=== PATIENT | male | born 1980 | race Caucasian/White ===

== ENCOUNTER → 2021-03-12 10:05 | Outpatient (BNVA) | payer OTHER, SELFPAY | PROVIDERS: Visit Provider Physician Assistant | DX: E66.01 Morbid (severe) obesity due to excess calories (principal); Z68.41 Body mass index [BMI] 40.0-44.9, adult | CPT/HCPCS: 99202 ==

== ENCOUNTER → 2021-04-07 08:03 | Outpatient (BNVA) | payer OTHER, SELFPAY | PROVIDERS: Visit Provider Surgery ==

== ENCOUNTER → 2021-04-13 08:03 | Outpatient (BNVA) | payer OTHER, SELFPAY | PROVIDERS: Visit Provider Dietitian, Registered ==

== ENCOUNTER → 2021-05-03 08:08 | Outpatient (BNVA) | payer OTHER, SELFPAY | PROVIDERS: Visit Provider Surgery ==

== ENCOUNTER → 2022-07-12 14:46 | Outpatient (BNVA) | payer OTHER, SELFPAY | PROVIDERS: PCP Internal Medicine; Visit Provider Physician Assistant Surgical | DX: Z13.89 Encounter for screening for other disorder (principal) ==

== ENCOUNTER → 2022-08-09 14:32 | Outpatient (BNVA) | payer OTHER, SELFPAY | PROVIDERS: PCP Internal Medicine; Visit Provider Physician Assistant Surgical | DX: E66.01 Morbid (severe) obesity due to excess calories (principal); Z68.41 Body mass index [BMI] 40.0-44.9, adult | CPT/HCPCS: 99211; 99212 ==

== ENCOUNTER 2022-08-09 16:41 | Outpatient (REF) | payer OTHER, SELFPAY ==
[2022-08-10 11:55] LABS: H Pylori Breath Test Negative (Negative)
== END 2022-08-09 16:42 | disposition home or self-care (01) ==
LOC: HO.US 16:41
PROVIDERS: Visit Provider Physician Assistant Surgical
DX: Z01.818 Encounter for other preprocedural examination (principal); E66.01 Morbid (severe) obesity due to excess calories; K21.9 Gastro-esophageal reflux disease without esophagitis
CPT/HCPCS: 36415; 83013

== ENCOUNTER → 2022-08-19 15:30 | Outpatient (BNVA) | payer OTHER, SELFPAY | PROVIDERS: PCP Internal Medicine; Visit Provider Counselor Mental Health ==

== ENCOUNTER → 2022-08-23 15:04 | Outpatient (BNVA) | payer OTHER, SELFPAY | PROVIDERS: PCP Internal Medicine; Visit Provider Dietitian, Registered | DX: E66.01 Morbid (severe) obesity due to excess calories (principal); Z71.3 Dietary counseling and surveillance | CPT/HCPCS: 97802 ==

== ENCOUNTER → 2022-08-29 14:36 | Outpatient (BNVA) | payer OTHER, SELFPAY | PROVIDERS: PCP Internal Medicine; Visit Provider Physician Assistant Surgical | DX: E66.01 Morbid (severe) obesity due to excess calories (principal); Z68.41 Body mass index [BMI] 40.0-44.9, adult | CPT/HCPCS: 99212 ==

== ENCOUNTER 2022-08-31 07:45 | Outpatient (REF) | payer OTHER, SELFPAY ==
--- NOTE | ~2022-08-31 | XR_ITS ---
EXAMINATION: XR CHEST CLINICAL INFORMATION: Morbid/severe obesity due to excess calories COMPARISON: None available. TECHNIQUE: 2 views of the chest were obtained. FINDINGS: No significant abnormality is noted involving the heart, lungs, mediastinum, bony thorax or soft tissues. XR/XR chest 2V IMPRESSION: Unremarkable chest examination.
--- NOTE | 2022-08-31 07:51 | ECG_ITS ---
Test Reason : morbid obesity Blood Pressure : / mmHG Vent. Rate : 065 BPM Atrial Rate : 065 BPM P-R Int : 154 ms QRS Dur : 098 ms QT Int : 372 ms P-R-T Axes : -19 -02 008 degrees QTc Int : 386 ms Normal sinus rhythm Normal ECG No previous ECGs available Referred By: Jose Manuel Electronically Signed By:AVA CALDERON MD
[2022-08-31 08:02] LABS: MANUAL DIFF FLAG NO
[2022-08-31 08:17] LABS: Basophils Percent Auto 0.8 % (0-2); Eosinophils Absolute Auto 0.2 X10*3/uL (0.0-0.4); Eosinophils Percent Auto 3.5 % (0-4); Hematocrit 44.8 % (42.0-52.0); Hemoglobin 14.9 g/dl (14.0-18.0); Imm Gran Abs Auto 0.01 X10*3/uL (0.00-0.03); Imm Gran Pct Auto 0.2 % (0.0-0.4); Lymphocytes Absolute Auto 1.6 X10*3/uL (1.2-4.9); Lymphocytes Percent Auto 29.8 % (20-40); Mean Corpuscular HGB Conc 33.3 g/dl (31.0-36.0); Mean Corpuscular Hemoglobin 28.7 pg (27.0-33.0); Mean Corpuscular Volume 86.2 fL (80.0-98.0); Mean Platelet Volume 10.9 fL (9.4-12.4); Monocytes Absolute Auto 0.5 X10*3/uL (0.1-1.2); Neutrophils Percent Auto 56.7 % (45-73); Platelet Count 194 X10*3/uL (160-400); Red Cell Distribution Width 12.7 % (11.0-16.0); White Blood Count 5.2 X10*3/uL (4.8-10.8)
[2022-08-31 08:21] LABS: Estimated Average Glucose 103 mg/dL; Hemoglobin A1c % 5.2 %
[2022-08-31 08:45] LABS: Alanine Aminotransferase 27 U/L (0-40); Albumin Level 4.3 g/dL (3.5-5.0); Alkaline Phosphatase 71 U/L (39-117); Anion Gap 9 (12-20); Aspartate Amino Transferase 21 U/L (5-37); Bilirubin Total 0.9 mg/dL (0.0-1.0); Blood Urea Nitrogen 15 mg/dL (9-16); Calcium 8.9 mg/dL (8.4-10.2); Carbon Dioxide 27 mmol/L (22-29); Chloride 108 mmol/L (96-108); Cholesterol 139 mg/dL; Estimated Glomerular Filt Rate > 60; Glucose Random 88 mg/dL (60-115); HDL Cholesterol 40 mg/dL; Iron 71 mcg/dL (45-160); LDL Cholesterol Calculated 90 mg/dl; Percent Iron Saturation 30 % (15-50); Potassium 4.4 mmol/L (3.3-5.1); Sodium 140 mmol/L (135-145); Total Iron Binding Capacity 239 mcg/dL (228-428); Total Protein 6.7 g/dL (6.5-8.0); Triglycerides 45 mg/dL; Unsaturated Iron Binding 168 ug/dL
[2022-08-31 09:14] LABS: Ferritin 105 ng/mL (20-250); Folate 5.6 ng/mL (> or = 4.0); Insulin 7 uU/mL (2-29); TSH reflex Free T4 0.96 uIU/mL (0.32-4.0); Vitamin B12 570 pg/mL (200-900)
[2022-09-02 14:58] LABS: Calcium (PTHI) 9.2 mg/dL (8.6-10.3); PTHI 55 pg/mL (16-77)
[2022-09-06 06:18] LABS: Vitamin A 44 mcg/dL (38-98)
[2022-09-08 05:48] LABS: Vitamin B1 8 nmol/L (8-30)
== END 2022-08-31 07:46 | disposition home or self-care (01) ==
LOC: HO.XRAY 07:45
PROVIDERS: Visit Provider Physician Assistant Surgical
DX: E66.01 Morbid (severe) obesity due to excess calories (principal)
CPT/HCPCS: 36415; 71046; 80053; 80061; 82306; 82607; 82728; 82746; 83036; 83525; 83540; 83970; 84425; 84443; 84590; 84630; 85025; 86140; 93005

== ENCOUNTER 2022-09-21 07:47 | Outpatient (REF) | payer MEDICAID, SELFPAY ==
--- NOTE | ~2022-09-21 | FL_ITS ---
EXAMINATION: XR FLUOROSCOPY UPPER GI WITH AIR CLINICAL INFORMATION: Morbid obesity COMPARISON: None available. TECHNIQUE: Air-contrast upper GI examination. FINDINGS: There is normal apposition of the vocal cords while saying E. There is normal elevation of the soft palate while saying candy. Patient swallowed combination of thin and thick barium and half-inch diameter barium tablet without difficulty. No nasopharyngeal reflux or tracheal aspiration identified. The esophagus appears unremarkable without evidence of persistent stricture or mucosal abnormality. There is normal esophageal motility. No gastroesophageal reflux identified. Stomach has normal distensibility without abnormal mass or ulceration. There was no delay in gastric emptying. The duodenal bulb and sweep appeared unremarkable. FLUOROSCOPY TIME: 2.2 minutes DOSE AREA PRODUCT: 31.107 Gy-cm2 (charles-centimeter squared) FL/FL upper GI w air IMPRESSION: Minimal rapidly clearing gastroesophageal reflux. Otherwise unremarkable air-contrast upper GI examination.
--- NOTE | ~2022-09-21 | US_ITS ---
EXAMINATION: US COMPLETE ABDOMEN WITH LIVER ELASTOGRAPHY CLINICAL INFORMATION: Obesity. COMPARISON: None available. TECHNIQUE: Real-time imaging of the abdominal viscera. Noninvasive ultrasound liver fibrosis assessment is performed using Clare ElastPQ point quantification shear wave elastography (2D-SWE) with a C5-2 MHz transducer. Multiple elastography samples are obtained. FINDINGS: PANCREAS: Not visualized due to bowel gas. ABDOMINAL AORTA: The proximal, middle, and distal aortic segments are normal in caliber. INFERIOR VENA CAVA: Visualized portions are normal. LIVER: Liver echotexture is increased. The liver is normal in size and contour. No focal lesion or intrahepatic biliary duct dilatation. The right lobe measures 15 cm in length. The left lobe measures 9 cm in length. Portal flow is normal/hepatopedal Shear wave liver elastography median stiffness is 1.6 m/s (reference: normal median stiffness is 1.3 m/s or less). IQR/median stiffness to assess sampling precision is 0.15 (reference: good quality data set is IQR/median stiffness of 0.15 or less). GALLBLADDER: Normal. The gallbladder is physiologically distended without evidence of stones, sludge, polyps, wall thickening or pericholecystic fluid. COMMON BILE DUCT: Normal in caliber measuring 0.3 cm in diameter. RIGHT KIDNEY: Normal. No hydronephrosis. No renal calculi or focal parenchymal lesions. The kidney measures 12.7 cm in maximum dimension. LEFT KIDNEY: Normal. No hydronephrosis. No renal calculi or focal parenchymal lesions. The kidney measures 12.2 cm in maximum dimension. SPLEEN: Upper normal in size. The spleen measures 13.6 cm in maximum dimension. FREE FLUID: None. US/US abdomen comp w elastography IMPRESSION: 1. Impression: Echogenic liver suggestive of fatty infiltration. Upper normal-size spleen. Nonvisualization of the pancreas. 2. Liver elastography: Adequate liver sampling. In the absence of other known clinical signs, rules out compensated advanced chronic liver disease. REFERENCE: Society of Radiologists in Ultrasound Liver Stiffness Thresholds (2020): LIVER STIFFNESS THRESHOLDS: *Liver Stiffness equal or less than 1.3 m/s: High probability of being normal. *Liver Stiffness less than 1.7 m/s: In the absence of other known clinical signs, rules out compensated advanced chronic liver disease. *Liver Stiffness 1.7-2.1 m/s: Suggestive of compensated advanced chronic liver disease but need further test for confirmation. *Liver Stiffness over 2.1 m/s: Rules in compensated advanced chronic liver disease. *Liver Stiffness over 2.4 m/s: Suggestive of clinically significant portal hypertension. QUALITY OF DATA SET: *IQR/Median value equal or less than 0.15 implies a quality data set. *IQR/Median value over 0.15 implies a poor quality data set. SIGNIFICANT CHANGE FROM PRIOR EXAM: Significant change if liver stiffness measurement is 10% or greater from prior exam. OTHER CONSIDERATIONS: The stage of liver fibrosis may be overestimated in the setting of acute hepatitis, liver inflammation, elevated liver function tests, hepatic vascular congestion, obstructive cholestasis, non-fasting state, and infiltrative diseases such as amyloidosis and lymphoma. In some patients with NAFLD, the liver stiffness thresholds for compensated advanced chronic liver disease may be lower. In causes other than viral hepatitis and NAFLD, liver stiffness thresholds are not well established.
== END 2022-09-21 07:48 | disposition home or self-care (01) ==
LOC: HO.XRAY 07:47
PROVIDERS: PCP Internal Medicine; Visit Provider Physician Assistant Surgical
DX: E66.01 Morbid (severe) obesity due to excess calories (principal)
CPT/HCPCS: 74246; 76705; 76981

== ENCOUNTER → 2022-09-22 15:22 | Outpatient (BNVA) | payer MEDICAID, SELFPAY | PROVIDERS: PCP Internal Medicine; Visit Provider Dietitian, Registered | DX: E66.01 Morbid (severe) obesity due to excess calories (principal); Z68.41 Body mass index [BMI] 40.0-44.9, adult | CPT/HCPCS: 97803 ==

== ENCOUNTER → 2022-10-10 13:21 | Outpatient (BNVA) | payer OTHER, SELFPAY | PROVIDERS: PCP Internal Medicine; Visit Provider Physician Assistant Surgical | DX: E66.01 Morbid (severe) obesity due to excess calories (principal); Z68.41 Body mass index [BMI] 40.0-44.9, adult | CPT/HCPCS: 99212 ==

== ENCOUNTER 2023-01-17 13:56 | Outpatient (AMB) | payer SELFPAY ==
--- NOTE | 2023-01-17 14:06 | MHC.OFFVISWM ---
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 They were last seen in the office on 10/10/22, recorded weight at that time was 263 pounds, with a BMI of 41.2. Today's weight is 255 pounds and BMI is 40. There has been a weight loss of 26.4 pounds since initiating the surgical weight loss program on 08/09/22 with a total body weight loss of 9.3 %. Pre op work up completed as follows: SWL classes:? 12/27 BH appts: cleared 08/26/22 ? ? RD appts: cleared 09/22/22 Labs: 08/31/22-low D H. pylori: 10/09/22-neg CXR: 08/31/22-nad EK08/31/22-normal ABD U/S: 09/21/22-fatty liver UGI: 09/21/22-mild GERD The patient reports he had to reschedule several appointment due to work. Reports following the meal plan. But using 2 scoops per shake, doing bar dinner, not doing shake at night , haing coffee States he will follow the plan exactly but doesn't like the 2 scoops shake in the morning.? Current meal plan includes: 3 Orgain shakes ([employer], [employer], [employer], [email or web address]) First shake (1 scoops in 8 oz low fat unsweetened almond milk) at 6am-8am Second shake (1 scoop in 8 oz unsweetened almond milk) at 9am-11am 1 protein bar (Zone Perfect bars at [employer], [facility], or [employer]) at 1pm-3pm, and 1 luxembourger yogurt Dinner at 430 pm (10 forks of protein and 10 forks of salad/vegetables). Another shake with 1 scoop in 8 oz unsweetened almond milk at 6pm-8pm. Drinking 80 oz of water Current exercise plan includes: he has joined [employer] but not going. Does sports w his kids, basketball/volleyball. PFSH Surgical History Hx of umbilical hernia repair Family History Mother Diabetes Hernia Sleep apnea Father Diabetes Sleep apnea Hypertension Brother No problems noted. Brother No problems noted. Son No problems noted. Daughter No problems noted. Social History Alcohol intake: former Patient Tobacco Use Status: Former Tobacco user Review of Systems Const All systems reviewed & are unremarkable except as noted in HPI and below Physical Exam Const General: healthy appearing and no acute distress Resp Effort & Inspection: normal respiratory effort Auscultation: clear to auscultation bilaterally Cardio Rate: regular rate Rhythm: regular rhythm GI Auscultation: normal bowel sounds Extrem General: Yes normal to inspection Assessment & Plan Assessment & Plan (1) Morbid obesity: Code(s): E66.01 - Morbid (severe) obesity due to excess calories Plan: change meal plan: 3 Orgain shakes ([employer], [employer], [employer], [email or web address]) First shake (1 scoops in 8 oz low fat unsweetened almond milk) at 6am-8am Second shake (2 scoop in 8 oz unsweetened almond milk) at 9am-11am 1 luxembourger yogurt at 1pm-3pm, Dinner at 430 pm (10 forks of protein and 10 forks of salad/vegetables). Another shake with 1 scoop in 8 oz unsweetened almond milk at 6pm-8pm. Encouraged to exercise at [employer] as directed with goal of 300 helen daily Will refer to Dr Low for continued pre-op care text weight weekly text w any questions completed all pre-op testing Coding Level of Care Code Est Pt Level 3 (14595) Diagnoses Morbid obesity E66.01
[2023-01-17 14:14] VITALS: BP 141/91; PULSE 87; TEMP 36.1; O2SAT 96; BMI 39.9
== END 2023-01-17 14:39 | disposition home or self-care (01) ==
PROVIDERS: PCP Internal Medicine; Visit Provider Physician Assistant Surgical
DX: E66.01 Morbid (severe) obesity due to excess calories (principal)
CPT/HCPCS: 99213

== ENCOUNTER → 2023-01-17 13:56 | Outpatient (BNVA) | payer OTHER, SELFPAY | PROVIDERS: PCP Internal Medicine; Visit Provider Physician Assistant Surgical | DX: E66.01 Morbid (severe) obesity due to excess calories (principal); Z68.39 Body mass index [BMI] 39.0-39.9, adult | CPT/HCPCS: 99212 ==

== ENCOUNTER 2023-02-02 15:04 | Outpatient (AMB) | payer OTHER, SELFPAY ==
--- NOTE | 2023-02-02 15:06 | A.OFFVIS_ITS ---
Intake VS Expanded 02/02/23 15:16 Height 5 ft 7 in Weight 250 lb 9.6 oz BMI 39.2 BP 138/91 H Blood Pressure Location Rt brachial Blood Pressure Position Sitting Pulse 95 Pulse Source Pulse Oximeter Temp 97.6 F Temperature Source Tympanic Pulse Oximetry 97 Oxygen Delivery Method Room Air Body Fat 90.8 Body Fat Percentage 36.3 Free Fat Mass 159.6 Muscle Mass 151.6 Visceral Mass 20.0 Water Mass 114.8 BMR 2,199 Intake Visit Reasons: (OV) F/U SWL Prism Inspector Required: Yes Prism Inspector Name: Kell Information Interpreted: non-clinical & clinical Paint Roller Covermaker: Paint Roller Covermaker Present Allergies No Known Allergies Allergy (Verified 10/10/22 13:30) Medication List - Last Reconciled 02/02/23 by Jairo Low MD cholecalciferol (vitamin D3) 125 mcg PO DAILY HPI HPI Comments History of Present Illness Details The patient is seen to discuss surgical weight loss because of a lifelong struggle with obesity. He has been working on healthy lifestyle changes and reports his current meal plan is working well. He is congratulated on his interval weight loss of 24 lb since entering the surgical weight loss program. He presented with class 3 obesity weight of 272.2/BMI 42.6 on 08/09/22 & today, 02/02/23 has a weight of 229.2/BMI 38.1. BHARATHI:0 ESS:1 GERD4: QOL:42 Pre op work up completed as follows: SWL classes:? 12/27 BH appts: cleared 08/26/22 ? ? RD appts: cleared 09/22/22 Labs: 08/31/22-low D H. pylori: 10/09/22-neg CXR: 08/31/22-nad EK08/31/22-normal ABD U/S: 09/21/22-fatty liver UGI: 09/21/22-mild GERD He reports a history of his umbilical hernia repair Current meal plan includes: 3 Orgain shakes ([employer], [employer], [facility], org [email or web address]) First shake (1 scoops in 8 oz low fat unsweetened almond milk) at 6am-8am Second shake (1 scoop in 8 oz unsweetened almond milk) at 9am-11am 1 protein bar (Zone Perfect bars at [employer], [facility], or [employer]) at 1pm-3pm, and 1 malay yogurt Dinner at 430 pm (10 forks of protein and 10 forks of salad/vegetables). Another shake with 1 scoop in 8 oz unsweetened almond milk at 6pm-8pm. Drinking 80 oz of water Current exercise plan includes: he has joined [employer] but not going. Does sports w his kids, basketball/volleyball. PFSH Surgical History Hx of umbilical hernia repair Family History Mother Diabetes Hernia Sleep apnea Father Diabetes Sleep apnea Hypertension Brother No problems noted. Brother No problems noted. Son No problems noted. Daughter No problems noted. Social History Alcohol intake: former Patient Tobacco Use Status: Former Tobacco user Review of Systems Const All systems reviewed & are unremarkable except as noted in HPI and below Reports as per HPI Physical Exam On exam he is nontoxic and in good spirits Sclera anicteric He is in no acute respiratory distress Abdomen is obese, nontender Results Reviewed Results Reviewed: Labs 08/09/2022 Hemoglobin 14.9 with normal indices, normal iron studies, white blood cell count 5.2 with normal differential, platelet count 194 K Hemoglobin A1c 5.2 BUN 15/creatinine 0.87, normal electrolytes, normal lipids, normal LFTs Diagnostic imaging CXR: NAD UGI No HH, mild GERD Abd U/S NAFLD & compensated liver fibrosis, borderline spleen enlargement Assessment & Plan Assessment & Plan (1) Class 3 obesity: Code(s): E66.01 - Morbid (severe) obesity due to excess calories (2) NAFLD (nonalcoholic fatty liver disease): Code(s): K76.0 - Fatty (change of) liver, not elsewhere classified Plan Using a teaching business information consultant we reviewed normal anatomy, digestive physiology and options at this point including ongoing medical weight loss, or surgical weight loss options including laparoscopic sleeve gastrectomy and laparoscopic gastric bypass. The patient would like to proceed with laparoscopic sleeve gastrectomy. The inherent risks of surgery including, but not limited to: Weight regain if maladaptive eating and sedentary behavior resume, the importance of ongoing healthy dietary choices including high-protein/low-carbohydrate/low-fat and increased activity/exercise to augment weight loss, risk of GERD, risk of DVT that could cause fatal PE, risks of bleeding that could require reoperation or blood transfusion were discussed. Patient seemed understand his options and noted that he has a upcoming trip to [place] and would like to discuss proceeding with surgery when he returns. Patient will continue his current meal plan and work on increasing his activity/exercise. The importance of hydration for his upcoming trip to [place] was discussed and apparently understood. Will submit to the insurance company since he is reached goal weight loss and we will see him back to sign consents and review typical perioperative course. The laparoscopic procedure, possible need for hiatal hernia repair, intraoperative endoscopy were discussed. The importance of hydration and early ambulation to prevent DVT was discussed. The bowel prep and postoperative meal plan was discussed. The importance of avoiding airplan/seat travel travel for 2 months after surgery was also reviewed and apparently understood Coding Level of Care Code Est Pt Level 4 (44418) Diagnoses Class 3 obesity E66.01 NAFLD (nonalcoholic fatty liver disease) K76.0
[2023-02-02 15:16] VITALS: BP 138/91; PULSE 95; TEMP 36.4; O2SAT 97; BMI 39.2
== END 2023-02-02 16:13 | disposition home or self-care (01) ==
PROVIDERS: PCP Internal Medicine; Visit Provider Surgery
DX: E66.01 Morbid (severe) obesity due to excess calories (principal); K76.0 Fatty (change of) liver, not elsewhere classified
CPT/HCPCS: 99214

== ENCOUNTER → 2023-02-02 15:04 | Outpatient (BNVA) | payer SELFPAY | PROVIDERS: PCP Internal Medicine; Visit Provider Surgery | DX: E66.01 Morbid (severe) obesity due to excess calories (principal); K76.0 Fatty (change of) liver, not elsewhere classified; Z68.39 Body mass index [BMI] 39.0-39.9, adult | CPT/HCPCS: 99212 ==

== ENCOUNTER 2023-03-08 15:33 | Outpatient (AMB) | payer OTHER, SELFPAY ==
--- NOTE | 2023-03-08 15:02 | A.OFFVIS_ITS ---
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 weight loss: 35 pounds since starting the program in July. awakens at: 5 am, bed at : 10 pm [facility] Surgical History Hx of umbilical hernia repair Family History Mother Diabetes Hernia Sleep apnea Father Diabetes Sleep apnea Hypertension Brother No problems noted. Brother No problems noted. Son No problems noted. Daughter No problems noted. Social History Alcohol intake: former Patient Tobacco Use Status: Former Tobacco user Review of Systems Const All systems reviewed & are unremarkable except as noted in HPI and below Assessment & Plan Assessment & Plan (1) Obesity (BMI 30-39.9): Code(s): E66.9 - Obesity, unspecified Plan: 1. Start this meal plan on 03/08/23, approximately 2 weeks prior to surgery. Using Orgain Protein powder, 1 and 1/2 scoops per shake dissolved in 8 oz unsweetened almond milk first shake 6am-8am second shake 9 am-11 am third shake 12pm-2pm fourth shake 3pm-5 pm fifth shake 7 pm-9 pm 2. Drink at least 64 oz fluids daily. NO SODA OR JUICE. NO CAFFEINE 3. Continue to take your vitamins as you have been doing 4. No ALCOHOLIC beverages 5. No Advil, Motirn, Aleve or NSAIDS 6. Midnight on the night before surgery, nothing by mouth to eat or drink except as specifically advised by your surgeon for medications in the morning with a small sip of water. 7. Text me if you have any questions or concerns. [phone] Telehealth Telehealth Location of provider rendering services: practice address Location of patient: other Patient Identification confirmed using: Name, : Yes Telehealth method: video Patient verbally consented to treatment: Yes Patient verbally consented to billing insurance company: Yes Patient informed of any privacy concerns related to visit: Yes Minutes spent on Phone/Video with Pt.: 15 Coding Level of Care Code Tele Est Pt Level 3 (39753) Diagnoses Obesity (BMI 30-39.9) E66.9 Time Spent (min) 20
[2023-03-08 15:26] VITALS: BMI 38.5
== END 2023-03-08 16:03 | disposition home or self-care (01) ==
LOC: HO.HBS 15:33
PROVIDERS: PCP Internal Medicine; Visit Provider Physician Assistant Surgical
DX: E66.9 Obesity, unspecified (principal); Z68.38 Body mass index [BMI] 38.0-38.9, adult
CPT/HCPCS: 99213

== ENCOUNTER → 2023-03-08 15:33 | Outpatient (BNVA) | payer OTHER, SELFPAY | PROVIDERS: PCP Internal Medicine; Visit Provider Physician Assistant Surgical ==

== ENCOUNTER 2023-03-15 14:59 | Outpatient (AMB) | payer OTHER, SELFPAY ==
--- NOTE | 2023-03-15 15:06 | MHC.OFFVISWM ---
Intake VS Expanded 03/15/23 15:13 BP 133/86 Blood Pressure Location Rt brachial Blood Pressure Position Sitting Pulse 93 Pulse Source Pulse Oximeter Temp 97.1 F Temperature Source Temporal Artery Scan Pulse Oximetry 97 Oxygen Delivery Method Room Air Height 5 ft 7 in Weight 246 lb 3.2 oz BMI 38.6 Body Fat % 35.6 Body Fat Mass 87.6 Fat Free Mass 158.6 Visceral Fat Rating 19.0 Body Water % 46.6 Body Water Mass 114.6 Muscle Mass/Score 150.8 Basal Metabolic Rate/Score 2,179 Intake Visit Reasons: (OV) Pre Op LSG 03/22/23 [employer] Fire Control Man Required: Yes [employer] Fire Control Man Name: Kell Information Interpreted: clinical only Plywood Layup 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 Mix each packet with 8 oz's of water before surgery. sucralfate 10 mL PO BID 30 days HPI HPI Comments History of Present Illness Details The patient is seen to discuss surgical weight loss because of a lifelong struggle with obesity. He has been working on healthy lifestyle changes and reports his current meal plan is working well. He is congratulated on his interval weight loss of 24 lb since entering the surgical weight loss program. He presented with class 3 obesity weight of 272.2/BMI 42.6 on 08/09/22 & today, 03/15/23 has a weight of 246.2/BMI 38.6. BHARATHI:0 ESS:1 GERD4: QOL:42 Pre op work up completed as follows: SWL classes:? 12/27 BH appts: cleared 08/26/22 ? ? RD appts: cleared 09/22/22 Labs: 08/31/22-low D H. pylori: 10/09/22-neg CXR: 08/31/22-nad EK08/31/22-normal ABD U/S: 09/21/22-fatty liver UGI: 09/21/22-mild GERD He reports a history of his umbilical hernia repair Current meal plan includes: 3 Orgain shakes ([employer], [employer], [employer], [email or web address]) First shake (1 scoops in 8 oz low fat unsweetened almond milk) at 6am-8am Second shake (1 scoop in 8 oz unsweetened almond milk) at 9am-11am 1 protein bar ([employer] Perfect bars at [employer], [employer], or [employer]) at 1pm-3pm, and 1 slovenian yogurt Dinner at 430 pm (10 forks of protein and 10 forks of salad/vegetables). Another shake with 1 scoop in 8 oz unsweetened almond milk at 6pm-8pm. Drinking 80 oz of water The patient notes some difficulty with or gain shakes and was given 2 samples of celebrate 4 in 1. He notes that he will be trying the Orgain shakes with almond milk later this week for the liver shrinking diet and will call us if a different protein shake is required for the liver shrinking diet Current exercise plan includes: he has joined [employer] but not going. Does sports w his kids, basketball/volleyball. PFSH Medical History Former smoker, stopped smoking in distant past Surgical History Hx of umbilical hernia repair Family History Mother Diabetes Hernia Sleep apnea Father Diabetes Sleep apnea Hypertension Brother No problems noted. Brother No problems noted. Son No problems noted. Daughter No problems noted. Social History Are you a primary healthcare risk control consultant to a significant other at home: Yes (2 children, mom will be there post-op to help) Do you presently have visiting nurse or other home services: No Alcohol intake: former Patient Tobacco Use Status: Former Tobacco user Quit Date: 2002 Tobacco use type: Cigarette Physical Exam Vital Signs: Last Vital Signs Temp 97.1 F 03/15/23 15:13 Pulse 93 03/15/23 15:13 BP 133/86 03/15/23 15:13 Pulse Ox 97 03/15/23 15:13 Oxygen Delivery Method Room Air 03/15/23 15:13 BMI result Body Mass Index 38.6 On exam he is nontoxic and in good spirits Sclera anicteric He is in no acute respiratory distress Abdomen is obese, nontender Results Reviewed Results Reviewed: Labs 08/09/2022 Hemoglobin 14.9 with normal indices, normal iron studies, white blood cell count 5.2 with normal differential, platelet count 194 K Hemoglobin A1c 5.2 BUN 15/creatinine 0.87, normal electrolytes, normal lipids, normal LFTs Diagnostic imaging CXR: NAD UGI No HH, mild GERD Abd U/S NAFLD & compensated liver fibrosis, borderline spleen enlargement Assessment & Plan Assessment & Plan (1) Obesity (BMI 30-39.9): Code(s): E66.9 - Obesity, unspecified (2) NAFLD (nonalcoholic fatty liver disease): Code(s): K76.0 - Fatty (change of) liver, not elsewhere classified (3) Class 3 obesity: Code(s): E66.01 - Morbid (severe) obesity due to excess calories (4) Knee pain: Code(s): M25.569 - Pain in unspecified knee (5) Morbid obesity: Code(s): E66.01 - Morbid (severe) obesity due to excess calories Plan The patient is congratulated on his ongoing healthy lifestyle changes and weight loss. Options including medical weight loss, gastric bypass and sleeve gastrectomy were discussed. Kell facilitated the visit today interpreting the preoperative, perioperative and postoperative course. The patient would like to proceed with a laparoscopic sleeve gastrectomy, possible hiatal hernia repair, intraoperative upper endoscopy and possible ventral hernia repair. I reviewed the inherent risks of this procedure which include, but are not limited to: Bleeding that could require another operation or blood transfusion; the inherent risks of transfusion reaction infectious disease from blood transfusions; the risk of staple line leaks that could cause sepsis, multi-system organ failure and ; the risk of mesenteric or deep vein thrombosis of the lower extremities that could cause a fatal pulmonary embolism was reviewed; the risk of GERD that could require conversion to gastric bypass was discussed; the risk of recurrent hiatal hernia, especially in the setting of weight regain was reviewed. The risk of weight regain if maladaptive eating and sedentary behavior continue was discussed. The importance of proper diet and increased activity to augment surgical weight loss and the fact that no operation would result in weight loss of poor dietary decisions and sedentary behavior are resumed were discussed at length and apparently understood. The patient had the option of having a mink rancher present and declined this option. Fasting labs are ordered. Bowel prep and perioperative medications were sent to the patient's pharmacy. Instructions were reviewed. Activity restrictions were reviewed. 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 The patient was advised he may need an additional week if he is unable to meet hydration goals. The importance of postoperative diet and increased activity to minimize risks including DVT and PE were discussed and apparently understood. The patient will void his urinary bladder director of operations home health, have SCDs and receive Ancef on-call. He notes that his mother will be waiting in the waiting room and requested that I speak with her postoperatively. Orders: Orders Comprehensive Met. Panel Today E66.01 - Morbid (severe) obesity due to excess calories, E66.9 - Obesity, unspecified, K76.0 - Fatty (change of) liver, not elsewhere classified, M25.569 - Pain in unspecified knee TSH reflex Free T4 Today E66.01 - Morbid (severe) obesity due to excess calories, E66.9 - Obesity, unspecified, K76.0 - Fatty (change of) liver, not elsewhere classified, M25.569 - Pain in unspecified knee IRON PROFILE Today E66.01 - Morbid (severe) obesity due to excess calories, E66.9 - Obesity, unspecified, K76.0 - Fatty (change of) liver, not elsewhere classified, M25.569 - Pain in unspecified knee Vitamin A Today E66.01 - Morbid (severe) obesity due to excess calories, E66.9 - Obesity, unspecified, K76.0 - Fatty (change of) liver, not elsewhere classified, M25.569 - Pain in unspecified knee Lipid Panel Today E66.01 - Morbid (severe) obesity due to excess calories, E66.9 - Obesity, unspecified, K76.0 - Fatty (change of) liver, not elsewhere classified, M25.569 - Pain in unspecified knee Vitamin B1 Today E66.01 - Morbid (severe) obesity due to excess calories, E66.9 - Obesity, unspecified, K76.0 - Fatty (change of) liver, not elsewhere classified, M25.569 - Pain in unspecified knee C Reactive Protein Today E66.01 - Morbid (severe) obesity due to excess calories, E66.9 - Obesity, unspecified, K76.0 - Fatty (change of) liver, not elsewhere classified, M25.569 - Pain in unspecified knee Partial Thromboplastin Time Today E66.01 - Morbid (severe) obesity due to excess calories, E66.9 - Obesity, unspecified, K76.0 - Fatty (change of) liver, not elsewhere classified, M25.569 - Pain in unspecified knee Vitamin B12 Today E66.01 - Morbid (severe) obesity due to excess calories, E66.9 - Obesity, unspecified, K76.0 - Fatty (change of) liver, not elsewhere classified, M25.569 - Pain in unspecified knee Complete Blood Count Auto Diff Today E66.01 - Morbid (severe) obesity due to excess calories, E66.9 - Obesity, unspecified, K76.0 - Fatty (change of) liver, not elsewhere classified, M25.569 - Pain in unspecified knee Vitamin D 25-OH Total Today E66.01 - Morbid (severe) obesity due to excess calories, E66.9 - Obesity, unspecified, K76.0 - Fatty (change of) liver, not elsewhere classified, M25.569 - Pain in unspecified knee Ferritin Today E66.01 - Morbid (severe) obesity due to excess calories, E66.9 - Obesity, unspecified, K76.0 - Fatty (change of) liver, not elsewhere classified, M25.569 - Pain in unspecified knee Hemoglobin A1c Today E66.01 - Morbid (severe) obesity due to excess calories, E66.9 - Obesity, unspecified, K76.0 - Fatty (change of) liver, not elsewhere classified, M25.569 - Pain in unspecified knee Prothrombin Time INR Today E66.01 - Morbid (severe) obesity due to excess calories, E66.9 - Obesity, unspecified, K76.0 - Fatty (change of) liver, not elsewhere classified, M25.569 - Pain in unspecified knee Type and Screen Today E66.01 - Morbid (severe) obesity due to excess calories, E66.9 - Obesity, unspecified, K76.0 - Fatty (change of) liver, not elsewhere classified, M25.569 - Pain in unspecified knee PTHI Today E66.01 - Morbid (severe) obesity due to excess calories, E66.9 - Obesity, unspecified, K76.0 - Fatty (change of) liver, not elsewhere classified, M25.569 - Pain in unspecified knee Zinc Today E66.01 - Morbid (severe) obesity due to excess calories, E66.9 - Obesity, unspecified, K76.0 - Fatty (change of) liver, not elsewhere classified, M25.569 - Pain in unspecified knee Medications: New ondansetron HCl 4 mg PO Q6H PRN 20 tabs 0RF nausea and vomiting pantoprazole 40 mg PO QAM 30 days 30 tabs 2RF sucralfate 10 mL PO BID 30 days 600 mL 2RF polyethylene glycol 3350 (Miralax) Take 7 packets 2 days before surgery and 7 packets 1 day before surgery. Mix each packet with 8 oz's of water before surgery. 14 packets 0RF acetaminophen 500 mg (15 mL) PO Q6H PRN 237 mL 2RF fever or pain Coding Level of Care Code Est Pt Level 4 (06730) Diagnoses Obesity (BMI 30-39.9) E66.9 NAFLD (nonalcoholic fatty liver disease) K76.0 Class 3 obesity E66.01 Knee pain M25.569 Morbid obesity E66.01
[2023-03-15 15:13] VITALS: BP 133/86; PULSE 93; TEMP 36.2; O2SAT 97; BMI 38.6
== END 2023-03-15 15:48 | disposition home or self-care (01) ==
PROVIDERS: PCP Internal Medicine; Visit Provider Surgery
DX: E66.9 Obesity, unspecified (principal); K76.0 Fatty (change of) liver, not elsewhere classified; E66.01 Morbid (severe) obesity due to excess calories; M25.569 Pain in unspecified knee
CPT/HCPCS: 99214

== ENCOUNTER → 2023-03-15 14:59 | Outpatient (BNVA) | payer OTHER, SELFPAY | PROVIDERS: PCP Internal Medicine; Visit Provider Surgery | DX: E66.01 Morbid (severe) obesity due to excess calories (principal); K76.0 Fatty (change of) liver, not elsewhere classified; M25.569 Pain in unspecified knee; Z68.38 Body mass index [BMI] 38.0-38.9, adult | CPT/HCPCS: 99212 ==

== ENCOUNTER 2023-03-18 10:02 | Outpatient (REF) | payer OTHER, SELFPAY ==
[2023-03-18 10:29] LABS: MANUAL DIFF FLAG NO
[2023-03-18 10:37] LABS: Basophils Percent Auto 0.5 % (0-2); Eosinophils Absolute Auto 0.1 X10*3/uL (0.0-0.4); Eosinophils Percent Auto 1.6 % (0-4); Hematocrit 47.5 % (42.0-52.0); Hemoglobin 15.9 g/dl (14.0-18.0); Imm Gran Abs Auto 0.02 X10*3/uL (0.00-0.03); Imm Gran Pct Auto 0.3 % (0.0-0.4); Lymphocytes Absolute Auto 1.2 X10*3/uL (1.2-4.9); Lymphocytes Percent Auto 20.1 % (20-40); Mean Corpuscular HGB Conc 33.5 g/dl (31.0-36.0); Mean Corpuscular Hemoglobin 28.3 pg (27.0-33.0); Mean Corpuscular Volume 84.5 fL (80.0-98.0); Mean Platelet Volume 10.3 fL (9.4-12.4); Monocytes Absolute Auto 0.4 X10*3/uL (0.1-1.2); Monocytes Percent Auto 6.3 % (2-11); Neutrophils Absolute Auto 4.3 x10*3/uL (2.0-8.3); Neutrophils Percent Auto 71.2 % (45-73); Platelet Count 222 X10*3/uL (160-400); Red Blood Count 5.62 X10*6/uL (4.60-5.80); Red Cell Distribution Width 12.1 % (11.0-16.0); White Blood Count 6.1 X10*3/uL (4.8-10.8)
[2023-03-18 10:45] LABS: INTERNATIONAL NORM RATIO 0.9 (0.9-1.1); Prothrombin Time 11.5 SEC (11.1-13.3)
[2023-03-18 10:47] LABS: Partial Thromboplastin Time 32.2 SEC (26.0-36.4)
[2023-03-18 10:54] LABS: Estimated Average Glucose 94 mg/dL; Hemoglobin A1c % 4.9 % (<6.0)
[2023-03-18 11:01] LABS: Alanine Aminotransferase 29 U/L (0-40); Albumin Level 4.6 g/dL (3.5-5.0); Alkaline Phosphatase 69 U/L (39-117); Anion Gap 17 (12-20); Aspartate Amino Transferase 25 U/L (5-37); Blood Urea Nitrogen 10 mg/dL (9-16); C Reactive Protein 0.43 mg/dL (< or = 0.50); Calcium 10.1 mg/dL (8.4-10.2); Carbon Dioxide 25 mmol/L (22-29); Chloride 103 mmol/L (96-108); Cholesterol 165 mg/dL (<200); Estimated Glomerular Filt Rate > 60; Glucose Random 80 mg/dL (60-115); HDL Cholesterol 43 mg/dL (>40); Iron 64 mcg/dL (45-160); LDL Cholesterol Calculated 111 mg/dL (<100); Percent Iron Saturation 27 % (15-50); Potassium 4.3 mmol/L (3.3-5.1); Sodium 141 mmol/L (135-145); Total Iron Binding Capacity 240 mcg/dL (228-428); Total Protein 7.9 g/dL (6.5-8.0); Triglycerides 59 mg/dL (<150); Unsaturated Iron Binding 176 ug/dL
[2023-03-18 11:17] LABS: Ferritin 158 ng/mL (20-250); TSH reflex Free T4 0.71 uIU/mL (0.32-4.0); Vitamin D 25-OH Total 34.1 ng/mL (>30)
[2023-03-18 12:27] LABS: Vitamin B12 708 pg/mL (200-900)
[2023-03-20 11:48] LABS: Calcium (PTHI) 9.6 mg/dL (8.6-10.3); PTHI 36 pg/mL (16-77)
[2023-03-21 01:09] LABS: Zinc 84 mcg/dL (60-130)
[2023-03-22 18:39] LABS: Vitamin A 45 mcg/dL (38-98)
[2023-03-23 14:53] LABS: Vitamin B1 <6 nmol/L (8-30)
== END 2023-03-18 10:03 | disposition home or self-care (01) ==
LOC: HO.LAB 10:02
PROVIDERS: PCP Internal Medicine; Visit Provider Surgery
DX: K76.0 Fatty (change of) liver, not elsewhere classified (principal); E66.01 Morbid (severe) obesity due to excess calories; M25.569 Pain in unspecified knee
CPT/HCPCS: 36415; 80053; 80061; 82306; 82607; 82728; 83036; 83540; 83970; 84425; 84443; 84590; 84630; 85025; 85610; 85730; 86140

== ENCOUNTER 2023-03-22 06:13 | Inpatient (IN) | payer OTHER, SELFPAY ==
[2023-03-13 15:22] VITALS: BMI 40.3
--- NOTE | 2023-03-21 08:59 | P.CONAN_ITS ---
Documented by User: Armida Pacheco NP 03/21/23 09:00 HPI - Anesthesia Eval Consult details Narrative: 42yo M for Gastrectomy Sleeve-EGD, possible diaphragmatic hernia, possible ventral hernia, possible open PMFSH Active Problems Active Problems: All Active Problems (Updated 03/08/23 @ 15:26 by BALA Bliss) Obesity (BMI 30-39.9) (Acute) NAFLD (nonalcoholic fatty liver disease) (Acute) Class 3 obesity (Acute) Knee pain (Acute) Pre-op evaluation (Acute) Morbid obesity (Acute) Past Medical History Medical History Former smoker, stopped smoking in distant past Family History Family History Mother Diabetes Hernia Sleep apnea Father Diabetes Sleep apnea Hypertension Brother No problems noted. Brother No problems noted. Son No problems noted. Daughter No problems noted. Surgical History Surgical History Hx of umbilical hernia repair Social History Social History Are you a primary health care legal assistant to a significant other at home: Yes (2 children, mom will be there post-op to help) Do you presently have visiting nurse or other home services: No Alcohol intake: former Patient Tobacco Use Status: Former Tobacco user Quit Date: 2002 Tobacco use type: Cigarette Use of substances other than those prescribed or required for medical reasons: No Have you been hit, kicked, punched, or otherwise hurt by someone within the past year? If so, by whom?: No Are you DNR?: No Advance Directives: No Advance Directives Information Provided: Yes Advance Directives on File: No Recently lost weight without trying: No Eating poorly because of decreased appetite: No Nutrition Risks: No Nutritional Risk Poor oral hygiene: No Meds Allergies Allergy/AdvReac Type Severity Reaction Status Date / Time No Known Allergies Allergy Verified 03/15/23 15:11 Exam Exam Date and Time: March 21, 2023 0859 Height,Weight and Vital Signs: Height 5 ft 6 in Weight 113.398 kg Pertinent Lab Results Pertinent Lab Results: Laboratory Tests 03/18/23 10:18 Blood Type O Positive Antibody Screen NEGATIVE Laboratory Tests 03/18/23 10:25 WBC 6.1 Hgb 15.9 Hct 47.5 Plt Count 222 Sodium 141 Potassium 4.3 Chloride 103 Carbon Dioxide 25 BUN 10 Creatinine 0.84 Narrative Narrative: EKG 08/2022 Vent. Rate : 065 BPM Atrial Rate : 065 BPM P-R Int : 154 ms QRS Dur : 098 ms QT Int : 372 ms P-R-T Axes : -19 -02 008 degrees QTc Int : 386 ms Normal sinus rhythm Normal ECG No previous ECGs available Assessment and Plan Assessment Anesthesia Assessment: Chart Reviewed Documented by User: Christin Gray MD 03/22/23 08:02 [facility], [facility] Past Medical History Medical History Former smoker, stopped smoking in distant past Family History Family History Mother Diabetes Hernia Sleep apnea Father Diabetes Sleep apnea Hypertension Brother No problems noted. Brother No problems noted. Son No problems noted. Daughter No problems noted. Surgical History Surgical History Hx of umbilical hernia repair History of Problems with Anesthesia: No Social History Social History Are you a primary health care legal assistant to a significant other at home: Yes (2 children, mom will be there post-op to help) Do you presently have visiting nurse or other home services: No Alcohol intake: former Patient Tobacco Use Status: Former Tobacco user Quit Date: 2002 Tobacco use type: Cigarette Use of substances other than those prescribed or required for medical reasons: No Have you been hit, kicked, punched, or otherwise hurt by someone within the past year? If so, by whom?: No Are you DNR?: No Advance Directives: No Advance Directives Information Provided: Yes Advance Directives on File: No Recently lost weight without trying: No Eating poorly because of decreased appetite: No Nutrition Risks: No Nutritional Risk Poor oral hygiene: No Meds Allergies Allergy/AdvReac Type Severity Reaction Status Date / Time No Known Allergies Allergy Verified 03/15/23 15:11 Exam Airway Mallampati Class: III TM Dist: >3cm Neck ROM: Full Loose/Missing/Broken Teeth: No Heart: RRR Lungs: CTA Assessment and Plan Assessment Anesthesia Assessment: Anesthesia Plan Discussed Final Anesthetic Review History of Problems with Anesthesia: No NPO: Yes ASA Class: II Final Preanesthetic Review: Meds/Allgs Chart Reviewed, Consent Obtained/Reviewed and Anes Risks/Benef Reviewed Patient Risk: Low Procedure Risk: Intermediate Anesthetic Plan Anesthetic Plan: GA Disposition: Standard PACU
[2023-03-22] VITALS (11 sets, daily range): BP systolic 118–148; BP diastolic 73–90; PULSE 82–100; RESP 14–18; TEMP 36.1–37.2; O2SAT 95–100; BMI 38.6
--- NOTE | 2023-03-22 06:48 | MHC.SHP ---
Pre-Procedural Eval Section A Date of Service: 03/22/23 The patient is an INPATIENT: Yes The History & Physical has been completed within 30 days and I have reviewed it.: Yes Section B Chief Complaint: Obesity, S/P LSG Allergies: Allergies Allergy/AdvReac Type Severity Reaction Status Date / Time No Known Allergies Allergy Verified 03/15/23 15:11 Plan I have reviewed the history and physical and performed a pertinent physical examination on my patient. No changes have occurred unless specified. Time Spent With Patient Time: Total time managing care of this patient today ____ minutes.
--- NOTE | 2023-03-22 06:48 | W.PM.OPN ---
Operative Note Operative Note Date of Service: 03/22/23 Narrative: Preop diagnosis: [Class 3 obesity, NAFLD, hepatic fibrosis, knee pain, FH DM] Postop diagnosis: [same] Procedure: [Laparoscopic sleeve gastrectomy, gastropexy, intraoperative upper endoscopy] Surgeon: Jairo Low MD, FACS, [facility] Assist: [Jose Manuel PA-C] Anesthesia: [GET, Marcaine, 0.5% with epi] Estimated blood loss: [3cc] Specimen: [Portion of stomach with fundus] Intraoperative findings: [Grossly no evidence of hiatal hernia at laparoscopy and upper endoscopy; grossly normal stomach, liver and visualized gallbladder] Indications: [The patient is a 42yo man who entered the [facility] program due to a lifelong struggle with obesity. He presented with class 3 obesity weight of 272.2/BMI 42.6, with the comorbidities of NAFLD & relate hepatic fibrosis on U/S, knee pain & possible arthritis worsened by his weight. After learning the importance of diet and increased activity to augment surgical weight loss, options including medical weight loss, 2nd opinion and laparoscopic sleeve gastrectomy were discussed with the patient. He seemed understand his options with the help of an direct support professional home health and wanted to proceed with a laparoscopic sleeve gastrectomy, possible hiatal hernia repair, intraoperative upper endoscopy and possible ventral hernia repair. I reviewed the inherent risks of this procedure which include, but are not limited to: Bleeding that could require another operation or blood transfusion; the inherent risks of transfusion reaction infectious disease from blood transfusions; the risk of staple line leaks that could cause sepsis, multi-system organ failure and ; the risk of mesenteric or deep vein thrombosis of the lower extremities that could cause a fatal pulmonary embolism was reviewed; the risk of GERD that could require conversion to gastric bypass was discussed; the risk of recurrent hiatal hernia, especially in the setting of weight regain was reviewed. The risk of weight regain if maladaptive eating and sedentary behavior continue was discussed. On the day of surgery, the patient requested interpretive services to ask again review options & we reviewed medical management & the option of cancelling or rescheduling surgery given his previous weight loss and questions. Via direct support professional home health services, he seemed understand his options and stated that he wanted to proceed with surgery as planned and as discussed in the office. The importance of proper diet and increased activity to augment surgical weight loss and the fact that no operation would result in weight loss of poor dietary decisions and sedentary behavior are resumed were discussed at length and apparently understood.] Procedure: [The patient was identified in the preoperative holding area and again in or room 6. Patient was placed supine on the operating table. Safety straps were utilized and a footboard utilized. The patient was induced in general endotracheal anesthesia administered with excellent effect. An appropriate time-out was performed. The patient's abdomen was then widely prepped and draped in the usual manner for surgery using chlorprep. Antibiotics per protocol were administered by Anesthesia. After infiltrating preemptive local in the skin and subcutaneous tissues in the left upper quadrant, a stab incision was made sharply in the left subcostal abdomen and the Veress needle inserted without incident. An appropriate drop test was performed then a pneumoperitoneum of 15 mmHg was obtained using carbon dioxide. Opening pressures were 8 mmHg. Next, a 5 mm 0 degree scope over a 5 mm Optiview trocar was used to access the abdomen via the epigastric incision in the midline. Once the abdomen was entered, the the trocar obturator was removed and the laparoscope was used to confirm there was no injury from the Veress needle nor trocar insertion injury to the bowel or mesentery, then the scope was switched to a 5 mm 45 degree laparoscope. Next, using preemptive local, additional 5 mm trocars were placed under direct laparoscopic vision on the patient's left abdomen, then right and the 5 mm midline trocar upsized to a 12 mm to accommodate the stapler. The patient was then positioned in reverse Trendelenburg and the liver retractor deployed through the right lateral 5 mm trocar and secured. A 40 Romansh ViSiGi bougie was inserted by Anesthesia per os and advanced to the stomach to decompress. It was then withdrawn to the GE junction all under direct laparoscopic vision. Dissection was begun along the greater curvature using the 5 mm [place] LigaSure for hemostasis and continued to the left irineo of the diaphragm. Dissection was then carried towards the pylorus to 3-4 cm from the pylorus and retro gastric adhesions lysed. The gastroesophageal fat pad was carefully mobilized taking care to avoid injury to the esophagus and stomach and dissection carried towards the short gastrics taking care to avoid injury to the spleen and splenic artery. The diaphragmatic hiatus was carefully examined for a hernia, and no apparent hernia was appreciated. Next, the 40 Fr ViSiGi bougie was advanced by anesthesia under direct vision and laparoscopic guidance and positioned in the antrum approximately 3 cm from the pylorus using laparoscopic graspers to serve as a guide for a stapled sleeve gastrectomy. Stapling was performed with [employer] power stapler Endo-CORAL stapler with a purple 45 and 60 loads as needed to keep the sleeve morphology uniform. The bougie served as a guide to maintain the same sleeve caliber to avoid stricture & sleeve distortion. The 10 mm clip dean was used to apply additional clips to the staple line. Care was taken to be sure that the sleeve laid flat and was without stricture. Once the sleeve was complete, the portion of stomach was placed in the lower abdomen to be sent for removal and permanent section. The staple line, gastrocolic omentum, spleen and short gastric areas were all inspected for hemostasis which was found to be good. The ViSiGi bougie used for a leak test by reducing the reverse Trendelenburg and instilling sterile saline. Next, the bougie was withdrawn under laparoscopic vision used to suction the esophagus and hypopharynx and then discarded. After inspecting again for hemostasis, a gastropexy was performed using 2-0 Polysorb suture to secure the sleeve gastrectomy to the gastrocolic omentum with intracorporeal suturing technique. Next, I broke scrub perform an on-table upper endoscopy to assess the sleeve and the esophagus and stomach. The patient was returned to neutral position and the Olympus 160 gastroscope was advanced per os taking care to preserve the endotracheal tube. The esophagus was intubated without incident. Minimal air was insufflated and the scope advanced into the newly formed sleeve. The staple line was inspected for hemostasis and the morphology of the sleeve appeared straight with a uniform diameter. Intraoperatively, there was no evidence of staple line leak seen during laparoscopy as air was insufflated via endoscope. The scope was then used to aspirate the air from the sleeve withdrawn and removed. I then rescrubbed to return to the operative field and again inspected the field for hemostasis. After final assessment for hemostasis, the patient was returned to neutral position, a John used to withdraw the resected gastric specimen which was sent for permanent section. The fascia of the 12 mm midline was closed using an 0 Polysorb figure of 8 on a suture passer under direct laparoscopic vision. The abdomen was then deflated and all trocars removed. The suture was then tied and the skin closed with 4-0 Monocryl subcuticular sutures. The abdomen was then washed and dried, benzoin and Steri-Strips applied followed by Tegaderms. The patient tolerated the procedure well was then extubated the recover in stable condition. All sponge needle and instrument counts were correct x2. At the patient's request, I called his mother, Kim Jacobs, at [phone] to apprise her of the operation and typical postoperative plan. BEATRICE London served as direct support professional home health. The patient's mother's questions seemed to be satisfactorily answered.]
[2023-03-22] MEDS: Lactated Ringers 1,000 ML 150 ML IVCONT (07:05)
[2023-03-22] MEDS: Aprepitant 32 MG/4.4 ML VIAL IVPUSH (07:05)
--- NOTE | 2023-03-22 07:05 | PHA.MEDREC ---
Pharmacy Consult ? Medication Reconciliation Pharmacy has reviewed the medication reconciliation.
--- NOTE | 2023-03-22 10:06 | PM.DS ---
DS: Providers Provider Date of Service: 03/23/23 Date of admission: 03/22/23 06:13 Primary care physician: Kat Bae MD DS: Summary Hospital Course Hospital Course: ADMITTING DIAGNOSIS: obesity, ? DISCHARGE DIAGNOSIS: same, s/p laparoscopic sleeve gastrectomy ? PAST SURGICAL HISTORY: umbilical hernia repair ? PROCEDURE: upper endoscopy, laparoscopic sleeve gastrectomy ? DISCHARGE SUMMARY: ? History of Present Illness: ? The patient is a?42 year-old malewith a BMI of?44 kg/m2 and associated co-morbidities as described above. The patient had extensive work-up,lost?31.9 lbs preoperatively and was electively scheduled for laparoscopic, possible open sleeve gastrectomy and gastropexy. Risks and complications of the surgery were discussed with the patient in advance, particularly the possibility of , pulmonary embolism, anastomotic leak, bleeding, bowel injury, GERD, cardiac, renal or pulmonary complications. The patient understood all the risks and was in agreement with the surgical plan. ? Hospital Course: ? The patient underwent an uneventful laparoscopic sleeve gastrectomy with gastropexy on the day of admission. Postoperatively, the patient was transferred to the surgical floor. The patient received IV Acetaminophen and IV dilaudid for pain control. Patient was started on bariatric phase 1 diet POD #0. On postoperative day one, the patient was feeling well without nausea, vomiting, fevers, or tachycardia. The patient had some mild incisional pain and the abdomen was soft. ? On the morning of postoperative day one, the patient was continued on 1 ounce of water or ice every half hour. During the day, the patient did fairly well, having some incisional pain, but able to ambulate adequately and to tolerate liquids well. ? Since the patient is doing well, we decided that the patient was ready to be discharged. The patient was given instructions to follow-up with me next week and to call my office for any fever over 101, persistent abdominal pain, nausea, vomiting, GERD, symptoms of DVT such as calf tenderness, or leg swelling, or pulmonary embolism such as chest pain or shortness of breath. The patient was also instructed to drink 40-60 ounces of liquids per day using the 1-ounce cups. The patient had been given prescriptions for Tylenol for pain, Zofran prn for nausea, and pantoprazole and carafate previously. The patient was encouraged to ambulate and use the incentive spirometer. The patient was allowed to shower, but no baths, and encouraged to stay active at home. All of these instructions were given to the patient personally. All questions were answered and the patient understood all instructions, the instructions were also given to the patient in print. Time Attestation Discharge coordination time: Less than 30 minutes Quality: Safe Use of Opioids Does Pt have an Active Cancer Diagnosis on the Problem List?: No Quality: Stroke Does the patient have a stroke diagnosis?: No Physical Exam Vital Signs: Vital Signs: Last Vital Signs Temp 97.6 F 03/22/23 06:45 Pulse 91 03/22/23 06:45 Resp 18 03/22/23 06:45 BP 146/90 H 03/22/23 06:45 Pulse Ox 100 03/22/23 06:45 O2 Del Method Room Air 03/22/23 06:45 BMI result Body Mass Index 38.6 DS: Data Data Completed and Pending Pending studies at discharge: Pending at discharge 03/22/23 09:42 Surgical [PTH] Routine Discharge Plan Discharge Anticipated Discharge Date/Time: 03/23/23 10:09 Patient Disposition: Home, Self-Care Discharge Diagnosis: s/p laparoscopic sleeve gastrectomy Referrals: Kat Bae MD [Primary Care Provider] - 1 Week Jairo Low MD, [facility], [facility] [Physician] - 1 Week Discharge Medications: Continued ondansetron HCl 4 mg tablet 4 mg PO Q6H PRN (Reason: nausea and vomiting) Qty: 20 0RF pantoprazole 40 mg tablet,delayed release (DR/EC) 40 mg PO QAM 30 Days Qty: 30 2RF sucralfate 100 mg/mL suspension 10 ml PO BID 30 Days Qty: 600 2RF Discontinued cholecalciferol (vitamin D3) 125 mcg (5,000 unit) capsule 125 mcg PO DAILY Qty: 90 0RF polyethylene glycol 3350 [Miralax] 17 gram powder in packet See Rx Instructions PO DAILY Qty: 14 0RF Rx Instructions: Take 7 packets 2 days before surgery and 7 packets 1 day before surgery. Mix each packet with 8 oz's of water before surgery. Discharge Orders: Discharge Order (Routine); Ordered 03/23/23 Ordered By: Jairo Low Diet: Bariatric diet Activity on Discharge: No heavy lifting Stand Alone Forms: Patient Portal Discharge page Care Plan Goals: weight loss Health Concerns: obesity Plan of Treatment: No tub baths, sex or returning to work until discussed at first post op appointment. No exercise, alcohol, tobacco or illegal drug use. Continue to use incentive spirometer hourly while awake. Walk in home for 5- 10 minutes every 2 hours during the first week. Follow all instructions in the bariatric handbook and call with any questions.Discharge Instructions 1. Please call your doctor or come back to the emergency room should any new symptoms arise. 2. You will receive a courtesy call from [facility] 24-48 hours after discharge. 3. Activity: abstain from alcohol, practice limited stair climbing, no bending, no driving, no exercise, no illicit substances, no lifting, no sex, no tub bath, no work. 4. Diet: continue as discussed with Dr. Low. 5. Dressing Change/Wound Care: Your incision is covered by clear bandages and guaze underneath. If the area is tender, you may apply an ice pack for short intervals (no more than 20 minutes on, followed by at least 20 minutes off). Do not apply heat. Do not use creams, lotions, or topical antibiotics unless instructed to do so by your surgeon. These can cause infection or allergic reaction. 6. Call your doctor if: - Your temperature exceeds 101.5 F - You experience excessive pain or swelling - You have an unexpected reaction to medication - You have excessive bleeding - You experience continued vomiting/nausea - Your incision begins to separate - Your incision shows signs of infection such as increased redness, swelling, excessive pain, heat, or drainage (light blood or clear fluid is normal) 7. General instructions: No lifting greater than 5 lbs for 1 week and not more than 20lbs the next 3?weeks. No driving until seen at the office in 5-7 days after surgery. If you do not move your bowels in the next 2 days, please tell?Dr. Low. Please walk around your home every hour or two to prevent blood clots from forming in your legs. You do not need to wake from sleeping to walk. Please sleep in a bed or couch to prevent kinking at the hips and knees. Please take your incentive spirometer (your lung patient services specialist) home with you and use it for the next few days to prevent pneumonia. You may shower, no hot tubs, baths or swimming pools.?Please follow the post op diet instructions you are?given by Dr Low? and text me daily at 5-6pm for an update.?If you have any issues or concerns or questions please communicate this to him via text.? The Celebrate shakes have all of the bariatric vitamins you need if you consume these shakes. If you are drinking other protein shakes, you will need to purchase the Celebrate multivitamins and calcium that are available in the hospital gift shop on the first floor of the [facility].??Do not take anything without first discussing with Dr Low. Please make sure you are consuming at least 40 ounces of fluids per day starting the?day AFTER your discharge from the hospital. Always drink 1-2 ml per minute using the 5ml?syringe. If you drink faster you may experience?bloating,?gas pain, burping, nausea or heartburn. In that case please slow down your pace and use the syringe to?understand better the?proper?pace and volume of drinking. Do not hesitate to contact the office with any questions at . The patient's medical history has been reviewed and they are considered low risk for post op DVT and therefore DVT prophylaxis is not considered necessary. Travel after surgery was reviewed. The patient has not disclosed any travel plans during the first 30 days after surgery and they have been advised that within the first 30 days after surgery any bus, plane, train or car travel over 2 hours in duration is contraindicated due to the possibility of developing blood clots from immobility. Any travel, needs to include periods of ambulation of 10 minutes in duration every 2 hours.? The patient was instructed to discuss any plans for travel during this period with their bariatric surgeon. Assessment: stable s/p laparoscopic sleeve gastrectomy Discharge Date/Time: 03/23/23 11:45
[2023-03-22 11:03] LABS: Hemoglobin 14.9 g/dl (14.0-18.0)
--- NOTE | 2023-03-22 11:06 | P.PNGS_ITS ---
Subjective Subjective Date of Service: 03/22/23 Patient reports: no new complaints, still having pain and tolerating liquids well Interval history: The patient is seen on afternoon rounds. He was texting and calling family members and reports that he has some minimal gas pain but otherwise no dysphagia, odynophagia, regurgitation, nausea or vomiting. States he has been up and walking around in his voided. Overall, he is pleased with his progress and denies any chest pain, difficulty breathing or shortness of breath. Physical Exam 2 Vital Signs: Vital Signs: Last Vital Signs Temp 98.3 F 03/22/23 10:53 Pulse 97 03/22/23 10:53 Resp 16 03/22/23 10:53 BP 143/82 H 03/22/23 10:53 Pulse Ox 96 03/22/23 10:53 O2 Del Method Room Air 03/22/23 10:53 O2 Flow Rate 6 03/22/23 10:23 BMI result Body Mass Index 38.6 On exam, he is nontoxic He is anicteric He is having no respiratory distress His abdominal binder is intact with appropriate incisional tenderness on his abdominal exam. Objective Data Active Medications Albuterol Sulfate (Albuterol Sulfate (0.083%) 2.5 Mg/3 Ml Vial.Neb) 2.5 mg INHALE ONCE PRN PRN Reason: Wheezing Fentanyl (Fentanyl Citrate/Pf 100 Mcg/2 Ml Vial) 50 mcg IVPUSH Q5M PRN; Protocol PRN Reason: Pain, Severe (Pain Scale 7-10) Fentanyl (Fentanyl Citrate/Pf 100 Mcg/2 Ml Vial) 25 mcg IVPUSH Q5M PRN; Protocol PRN Reason: Pain, Moderate(Pain Scale 4-6) Hydromorphone HCl (Hydromorphone Hcl 0.5 Mg/0.5 Ml Syringe) 0.25 mg IVPUSH Q5M PRN; Protocol PRN Reason: Pain, Severe (Pain Scale 7-10) Lactated Ringer's (Lr) 1,000 mls @ 150 mls/hr IVCONT .[id number] FOR[facility]LY [facility], 1928–1983 Last Admin: 03/22/23 07:05 Dose: 150 mls/hr Documented By: CHEY Ondansetron HCl (Ondansetron Hcl 4 Mg/2 Ml Vial) 4 mg IVPUSH ONCE PRN PRN Reason: Nausea and Vomiting Oxycodone HCl (Oxycodone Hcl Immed Release 5 Mg Tablet) 5 mg PO ONCE PRN PRN Reason: Pain, Severe (Pain Scale 7-10) Oxycodone HCl (Oxycodone Hcl Immed Release 5 Mg Tablet) 10 mg PO ONCE PRN PRN Reason: Pain, Severe (Pain Scale 7-10) Labs 03/22/23 10:56 03/22/23 10:56 Procedures Date of Service Date of Service: 03/22/23 Progress Note: A&P Assessment and plan (1) S/P laparoscopic sleeve gastrectomy: Status: Acute (2) Obesity (BMI 30-39.9): Status: Acute (3) NAFLD (nonalcoholic fatty liver disease): Status: Acute (4) Class 3 obesity: Status: Acute (5) Knee pain: Status: Acute (6) Morbid obesity: Status: Acute Plan The importance of meeting hydration goals, out of bed/walking and incentive spirometry were reviewed. Trend labs and physical exam. Likely home tomorrow. Time Spent With Patient Time: Total time managing care of this patient today ____ minutes. Quality Stroke Does the patient have a stroke diagnosis?: No VTE Prior VTE?: No VTE Risk Level:: Surgical - moderate VTE Device Contraindication: N/A - Device Ordered VTE Drug Contraindication: Treatment Not Indicated
[2023-03-22 11:21] LABS: Anion Gap 18 (12-20); Blood Urea Nitrogen 9 mg/dL (9-16); Calcium 9.2 mg/dL (8.4-10.2); Carbon Dioxide 21 mmol/L (22-29); Chloride 105 mmol/L (96-108); Creatinine Clr Calc Pharmacy 124.7; Estimated Glomerular Filt Rate > 60; Glucose Random 117 mg/dL (60-115); Potassium 4.8 mmol/L (3.3-5.1); Sodium 139 mmol/L (135-145)
[2023-03-22] MEDS: ondansetron HCL 4 MG/2 ML VIAL IVPUSH ×2 (13:24→19:42)
[2023-03-22] MEDS: Lactated Ringers 1,000 ML 100 ML IVCONT ×2 (13:28→23:07)
[2023-03-22] MEDS: ceFAZolin Sodium/Dextrose,Iso 2 GM/50 ML PIGGYBACK IV (14:09)
[2023-03-22] MEDS: Acetaminophen 1,000 MG/100 ML PIGGYBACK 16.7 MG IV ×2 (14:41→19:42)
[2023-03-22] MEDS: Famotidine/PF 20 MG/2 ML VIAL IVPUSH (19:42)
[2023-03-22] MEDS: 0.9 % Sodium Chloride Flush 3 ML SYRINGE IVFLUSH (19:45)
[2023-03-23] MEDS: Acetaminophen 1,000 MG/100 ML PIGGYBACK 16.7 MG IV ×2 (01:27→07:59)
[2023-03-23 03:23] VITALS: BP 123/69; PULSE 80; RESP 18; TEMP 36.7; O2SAT 98
[2023-03-23] MEDS: ondansetron HCL 4 MG/2 ML VIAL IVPUSH (03:37)
[2023-03-23 06:14] LABS: MANUAL DIFF FLAG NO
[2023-03-23 06:18] LABS: Basophils Percent Auto 0.2 % (0-2); Eosinophils Percent Auto 0.3 % (0-4); Hematocrit 40.6 % (42.0-52.0); Hemoglobin 13.4 g/dl (14.0-18.0); Imm Gran Abs Auto 0.05 X10*3/uL (0.00-0.03); Imm Gran Pct Auto 0.6 % (0.0-0.4); Lymphocytes Absolute Auto 1.6 X10*3/uL (1.2-4.9); Mean Corpuscular Hemoglobin 28.6 pg (27.0-33.0); Mean Corpuscular Volume 86.8 fL (80.0-98.0); Mean Platelet Volume 11.2 fL (9.4-12.4); Monocytes Absolute Auto 0.8 X10*3/uL (0.1-1.2); Neutrophils Absolute Auto 6.4 x10*3/uL (2.0-8.3); Neutrophils Percent Auto 71.9 % (45-73); Platelet Count 204 X10*3/uL (160-400); Red Blood Count 4.68 X10*6/uL (4.60-5.80); Red Cell Distribution Width 12.1 % (11.0-16.0)
[2023-03-23 06:32] LABS: Anion Gap 17 (12-20); Blood Urea Nitrogen 8 mg/dL (9-16); Carbon Dioxide 23 mmol/L (22-29); Chloride 105 mmol/L (96-108); Creatinine Clr Calc Pharmacy 140.3; Estimated Glomerular Filt Rate > 60; Glucose Random 69 mg/dL (60-115); Sodium 141 mmol/L (135-145)
[2023-03-23 07:12] VITALS: BP 112/62; PULSE 82; RESP 16; TEMP 36.3; O2SAT 98
--- NOTE | 2023-03-23 07:24 | P.PNGS_ITS ---
Subjective Subjective Date of Service: 03/23/23 Patient reports: no new complaints, feels better and tolerating liquids well Interval history: The patient is postop day 1. He declined interpretive services and notes that he is doing very well, meeting hydration goals, denies regurgitation, odynophagia, nausea, vomiting, hematemesis has passed gas and had a bowel movement. He otherwise denies chest pain, difficulty breathing or shortness of breath. Physical Exam 2 Vital Signs: Vital Signs: Last Vital Signs Temp 97.3 F 03/23/23 07:12 Pulse 82 03/23/23 07:12 Resp 16 03/23/23 07:12 BP 112/62 03/23/23 07:12 Pulse Ox 98 03/23/23 07:12 O2 Del Method Room Air 03/23/23 07:12 O2 Flow Rate 6 03/22/23 10:23 BMI result Body Mass Index 38.6 On exam he is nontoxic and in good spirits Sclera anicteric He is having no respiratory distress or difficulty Abdominal binder is intact with expected minimal incisional tenderness Objective Data Active Medications Albuterol Sulfate (Albuterol Sulfate (0.083%) 2.5 Mg/3 Ml Vial.Neb) 2.5 mg INHALE ONCE PRN PRN Reason: Wheezing Famotidine (Famotidine/Pf 20 Mg/2 Ml Vial) 20 mg IVPUSH BID PIEDAD Last Admin: 03/22/23 19:42 Dose: 20 mg Documented By: SHRAVANQC Fentanyl (Fentanyl Citrate/Pf 100 Mcg/2 Ml Vial) 50 mcg IVPUSH Q5M PRN; Protocol PRN Reason: Pain, Severe (Pain Scale 7-10) Fentanyl (Fentanyl Citrate/Pf 100 Mcg/2 Ml Vial) 25 mcg IVPUSH Q5M PRN; Protocol PRN Reason: Pain, Moderate(Pain Scale 4-6) Hydromorphone HCl (Hydromorphone Hcl 0.5 Mg/0.5 Ml Syringe) 0.25 mg IVPUSH Q5M PRN; Protocol PRN Reason: Pain, Severe (Pain Scale 7-10) Hydromorphone HCl (Hydromorphone Hcl 0.5 Mg/0.5 Ml Syringe) 0.25 mg IVPUSH Q4H PRN; Protocol PRN Reason: Pain, Moderate(Pain Scale 4-6) Lactated Ringer's (Lr) 1,000 mls @ 100 mls/hr IVCONT .Q10H [facility] Last Admin: 03/22/23 23:07 Dose: 100 mls/hr Documented By: RORO Acetaminophen (Ofirmev) 1,000 mg in 100 mls @ 16.7 mls/hr IV .Q6H [facility] Last Admin: 03/23/23 01:27 Dose: 16.7 mls/hr Documented By: RORO Metoclopramide HCl (Metoclopramide Hcl 10 Mg/2 Ml Vial) 10 mg IVPUSH Q6H PRN PRN Reason: Nausea Ondansetron HCl (Ondansetron Hcl 4 Mg/2 Ml Vial) 4 mg IVPUSH ONCE PRN PRN Reason: Nausea and Vomiting Ondansetron HCl (Ondansetron Hcl 4 Mg/2 Ml Vial) 4 mg IVPUSH Q8H [facility] Last Admin: 03/23/23 03:37 Dose: 4 mg Documented By: RORO Oxycodone HCl (Oxycodone Hcl Immed Release 5 Mg Tablet) 5 mg PO ONCE PRN PRN Reason: Pain, Severe (Pain Scale 7-10) Oxycodone HCl (Oxycodone Hcl Immed Release 5 Mg Tablet) 10 mg PO ONCE PRN PRN Reason: Pain, Severe (Pain Scale 7-10) Sodium Chloride (0.9 % Sodium Chloride Flush 3 Ml Syringe) 3 ml IVFLUSH QSHIFT [facility] Last Admin: 03/22/23 19:45 Dose: 3 ml Documented By: RORO Labs 03/23/23 05:36 03/23/23 05:36 Labs: Laboratory Results - last 24 hr 03/22/23 03/23/23 10:56 05:36 MCV 86.8 MCH 28.6 MCHC 33.0 RDW 12.1 Plt Count 204 MPV 11.2 Immature Gran % (Auto) 0.6 H Neut % (Auto) 71.9 Lymph % (Auto) 18.0 L [place] % (Auto) 9.0 Eos % (Auto) 0.3 Baso % (Auto) 0.2 Lymph # (Auto) 1.6 [place] # (Auto) 0.8 Eos # (Auto) 0.0 Baso # (Auto) 0.0 Abs Immat Gran (auto) 0.05 H Absolute Neuts (auto) 6.4 Absolute Nucleated RBC 0.000 Nucleated RBC % (auto) 0.0 Anion Gap 18 17 Estim Creat Clear Calc 124.7 140.3 Estimated GFR > 60 > 60 Random Glucose 117 H 69 Calcium 9.2 D 9.0 Procedures Date of Service Date of Service: 03/23/23 Progress Note: A&P Assessment and plan (1) S/P laparoscopic sleeve gastrectomy: Status: Acute (2) Obesity (BMI 30-39.9): Status: Acute (3) NAFLD (nonalcoholic fatty liver disease): Status: Acute (4) Class 3 obesity: Status: Acute (5) Knee pain: Status: Acute Plan Instructions regarding diet and meal plan were reviewed with the patient. He will be set for discharge after Cathryn Farmer confirms the patient has no questions in [place]. Meal plan and activity restrictions were reviewed. Follow-up next week. Importance of hydration and following the meal plan was reviewed and apparently understood. Time Spent With Patient Time: Total time managing care of this patient today ____ minutes. Quality Stroke Does the patient have a stroke diagnosis?: No VTE Prior VTE?: No VTE Risk Level:: Surgical - moderate VTE Device Contraindication: N/A - Device Ordered VTE Drug Contraindication: Treatment Not Indicated
[2023-03-23] MEDS: Famotidine/PF 20 MG/2 ML VIAL IVPUSH (07:59)
--- NOTE | 2023-03-23 14:09 | HO.POSTANES ---
Post Anesthesia Evaluation Post Anesthesia Evaluation Date of Service: 03/23/23 Vital Signs: Vital Signs Temp Pulse Resp BP Pulse Ox O2 Del Method 03/23/23 07:12 97.3 F 82 16 112/62 98 Room Air 03/23/23 03:23 98.1 F 80 18 123/69 98 Room Air Anesthesia: General Endotracheal-GETA Mental Status: Awake Pain Control: Satisfactory Nausea/Vomiting: None Hydration: Adequate Anesthesia-Related Issues: No Anes. Related Issues
== END 2023-03-23 11:45 | disposition home or self-care (01) | DRG 403 ==
LOC: HO.SSSA 07:14 → HO.S3 11:19
PROVIDERS: Physician Assistant Surgical; Admitting Provider Surgery; PCP Internal Medicine; Visit Provider Surgery
PROC: 0DB64Z3 Excision of Stomach, Percutaneous Endoscopic Approach, Vertical (ICD-10-PCS; CPT 43845; principal; 2023-03-22 07:30)
DX: E66.01 Morbid (severe) obesity due to excess calories (principal); K74.00 Hepatic fibrosis, unspecified; K76.0 Fatty (change of) liver, not elsewhere classified; Z68.38 Body mass index [BMI] 38.0-38.9, adult; Z87.891 Personal history of nicotine dependence; Z79.899 Other long term (current) drug therapy
CPT/HCPCS: 36415; 80048; 85014; 85018; 85025; 86850; 86900; 86901; 88304; 88305; 88307; 88342; C9145; J0131; J0690; J1100; J1170; J2250; J2371; J2405; J3010

== ENCOUNTER → 2023-03-22 06:13 | Outpatient (BNV) | payer OTHER, SELFPAY | PROVIDERS: Admitting Provider Surgery; PCP Internal Medicine; Visit Provider Surgery | DX: E66.01 Morbid (severe) obesity due to excess calories (principal); Z68.41 Body mass index [BMI] 40.0-44.9, adult | CPT/HCPCS: 43659; 43775; 99024 ==

== ENCOUNTER 2023-03-28 08:50 | Outpatient (AMB) | payer OTHER, SELFPAY ==
--- NOTE | 2023-03-28 08:56 | MHC.OFFVISWM ---
Intake VS Expanded 03/28/23 09:05 BP 128/84 Blood Pressure Location Rt brachial Blood Pressure Position Sitting Pulse 100 Pulse Source Pulse Oximeter Temp 97.8 F Temperature Source Temporal Artery Scan Pulse Oximetry 98 Oxygen Delivery Method Room Air Height 5 ft 7 in Weight 231 lb 9.6 oz BMI 36.3 Body Fat % 35.3 Body Fat Mass 81.3 Fat Free Mass 149.6 Visceral Fat Rating 18.0 Body Water % 45.5 Body Water Mass 105.4 Muscle Mass/Score 142.2 Basal Metabolic Rate/Score 2,049 Intake Visit Reasons: (OV) 6 Days PO LSG 03/22/23 Edge Inker Required: Yes Edge Inker Name: Kell Information Interpreted: non-clinical & clinical Focused Factory Manager: Focused Factory Manager Present Accompanied by: Mother Allergies No Known Allergies Allergy (Verified 03/28/23 08:58) Medication List - Last Reconciled 03/28/23 by Jairo Low MD, FACS, [facility] ondansetron HCl 4 mg PO Q6H PRN pantoprazole 40 mg PO QAM 30 days sucralfate 10 mL PO BID 30 days HPI HPI Comments History of Present Illness Details The patient is s/p lap sleeve gastrectomy without HHR 03/22/23 for morbid obesity, NAFLD, knee pain. 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 He presented with class 3 obesity weight of 272.2/BMI 42.6 on 08/09/22 & today, 03/28/23 has a weight of 231.6/BMI 36.3 representing a 40 lb weight loss since entering the surgical weight loss program. He denies any GERD, regurgitation, nausea, vomiting, dysphagia or odynophagia. No fevers or chills, chest pain or difficulty breathing. He reports that he is overall pleased and anxious to add a Savory/non-sweet liquid, if safe and recommended because the sweetness of the protein shakes is becoming nauseating. Current meal plan is celebrate 4 in 1 shakes, 3 scoops in 3 shakes. 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 PFS Medical History Former smoker, stopped smoking in distant past Surgical History S/P laparoscopic sleeve gastrectomy Hx of laparoscopic partial gastrectomy Hx of umbilical hernia repair Family History Mother Diabetes Hernia Sleep apnea Father Diabetes Sleep apnea Hypertension Brother No problems noted. Brother No problems noted. Son No problems noted. Daughter No problems noted. Social History Household Members: Children Housing: House Are you a primary personal care service provider to a significant other at home: Yes (2 children, mom will be there post-op to help) Do you presently have visiting nurse or other home services: No Alcohol intake: former Patient Tobacco Use Status: Former Tobacco user Quit Date: 2002 Tobacco use type: Cigarette Review of Systems Const All systems reviewed & are unremarkable except as noted in HPI and below Physical Exam Vital Signs: Last Vital Signs Temp 97.8 F 03/28/23 09:05 Pulse 100 03/28/23 09:05 BP 128/84 03/28/23 09:05 Pulse Ox 98 03/28/23 09:05 Oxygen Delivery Method Room Air 03/28/23 09:05 BMI result Body Mass Index 36.3 On exam he is nontoxic and in very good spirits He is having no respiratory difficulty He is anicteric His abdomen is overweight and dressings were removed. Steri-Strips are in place and there is no erythema, skin reaction, swelling, tenderness. His abdomen is otherwise soft with no peritoneal sign Results Reviewed Results Reviewed: No evidence of H pylori or neoplasia and the resected gastric specimen Assessment & Plan Assessment & Plan (1) S/P laparoscopic sleeve gastrectomy: Code(s): Z98.84 - Bariatric surgery status (2) Obesity (BMI 30-39.9): Code(s): E66.9 - Obesity, unspecified (3) NAFLD (nonalcoholic fatty liver disease): Code(s): K76.0 - Fatty (change of) liver, not elsewhere classified (4) Class 3 obesity: Code(s): E66.01 - Morbid (severe) obesity due to excess calories (5) Knee pain: Code(s): M25.569 - Pain in unspecified knee Plan Instructions regarding walking/exercise were reviewed and apparently understood. The patient will work towards trending his calorie expenditure. Meal plan will continue is 3 celebrate 4 in 1 protein shakes to a total of 4 scoops per day Patient will continue to work on hydration and believes he is safe to return to work. Based on his current description, work note was provided Patient will follow-up with me in 3 weeks, continue to text me weekly weights and questions, follow-up with Christine Sharma in the next month. Coding Level of Care Code Global (97162) Diagnoses S/P laparoscopic sleeve gastrectomy Z98.84 Obesity (BMI 30-39.9) E66.9 NAFLD (nonalcoholic fatty liver disease) K76.0 Class 3 obesity E66.01 Knee pain M25.569
[2023-03-28 09:05] VITALS: BP 128/84; PULSE 100; TEMP 36.6; O2SAT 98; BMI 36.3
== END 2023-03-28 09:45 | disposition home or self-care (01) ==
PROVIDERS: PCP Internal Medicine; Visit Provider Surgery
DX: Z98.84 Bariatric surgery status (principal); E66.9 Obesity, unspecified; K76.0 Fatty (change of) liver, not elsewhere classified; E66.01 Morbid (severe) obesity due to excess calories; M25.569 Pain in unspecified knee
CPT/HCPCS: 99024

== ENCOUNTER → 2023-03-28 08:50 | Outpatient (BNVA) | payer OTHER, SELFPAY | PROVIDERS: PCP Internal Medicine; Visit Provider Surgery ==

== ENCOUNTER 2023-04-20 14:58 | Outpatient (AMB) | payer OTHER, SELFPAY ==
--- NOTE | 2023-04-20 15:02 | A.OFFVIS_ITS ---
Intake VS Expanded 04/20/23 15:11 BP 150/84 H Blood Pressure Location Rt brachial Blood Pressure Position Sitting Pulse 75 Pulse Source Pulse Oximeter Temp 96.1 F L Temperature Source Tympanic Pulse Oximetry 99 Oxygen Delivery Method Room Air Height 5 ft 7 in Weight 217 lb 12.8 oz BMI 34.1 Body Fat % 99 Body Fat Mass 69.8 Fat Free Mass 147.8 Visceral Fat Rating 15.0 Body Water % 48.4 Body Water Mass 105.4 Muscle Mass/Score 140.4 Basal Metabolic Rate/Score 2,001 Intake Visit Reasons: (OV) PO LSG 03/22/23 Pigs Feet Cleaner Required: No Allergies No Known Allergies Allergy (Verified 04/20/23 15:11) HPI HPI Comments History of Present Illness Details The patient is s/p lap sleeve gastrectomy without HHR 03/22/23 for mor bid obesity, NAFLD, knee pain. He declined an playground aide today. He presented with class 3 obesity weight of 272.2/BMI 42.6 on 08/09/22 & today, 04/20/23 has a weight of 217.8/BMI 32.1 representing a 55 lb weight loss since entering the surgical weight loss program. He denies any GERD, regurgitation, nausea, vomiting, dysphagia or odynophagia. No fevers or chills, chest pain or difficulty breathing. He reports that he is overall pleased and anxious to add a Savory/non-sweet liquid, if safe and recommended because the sweetness of the protein shakes is becoming nauseating. Current meal plan is celebrate 4 in 1 shakes, 4 scoops in 3 shakes. He has been adding 1/2 scoop to 2 shakes. He notes that he started taking pureed diet last week and notes that his mother had a sleeve gastrectomy in [place] and he decided to follow her meal plan. We stayed discuss this and I do not recommend continuing this practice and he notes that he is eating about 3 oz of food and feeling full, but he is pleased with his weight loss and notes that he has not seen the dietitian, Christine Sharma since her appointment was rescheduled until May 2023. He has not reached out to me by text nor call. Exercise: The patient states he is not exercising since he is too busy with work. He answered four(4) phone calls during our visit from [facility] and noted he does not have time for exercise. Patient reports that he is drinking 30 oz of water. He voiced concerns over his darkening urine and we discussed the importance of drinking 50-60 oz of water and staying on his protein shakes until he is seen by our dietitian. [facility] Medical History Former smoker, stopped smoking in distant past Surgical History S/P laparoscopic sleeve gastrectomy Hx of laparoscopic partial gastrectomy Hx of umbilical hernia repair Family History Mother Diabetes Hernia Sleep apnea Father Diabetes Sleep apnea Hypertension Brother No problems noted. Brother No problems noted. Son No problems noted. Daughter No problems noted. Social History Household Members: Children Housing: House Are you a primary health care marketing specialist to a significant other at home: Yes (2 children, mom will be there post-op to help) Do you presently have visiting nurse or other home services: No Alcohol intake: former Patient Tobacco Use Status: Former Tobacco user Quit Date: 2002 Tobacco use type: Cigarette Review of Systems Const All systems reviewed & are unremarkable except as noted in HPI and below Physical Exam Vital Signs: Last Vital Signs Temp 96.1 F L 04/20/23 15:11 Pulse 75 04/20/23 15:11 BP 150/84 H 04/20/23 15:11 Pulse Ox 99 04/20/23 15:11 Oxygen Delivery Method Room Air 04/20/23 15:11 BMI result Body Mass Index 34.1 On exam he is nontoxic and in very good spirits He is having no respiratory difficulty He is anicteric His abdomen is overweight and dressings were removed. Steri-Strips are in place and there is no erythema, skin reaction, swelling, tenderness. His abdomen is otherwise soft with no peritoneal sign Assessment & Plan Assessment & Plan (1) S/P laparoscopic sleeve gastrectomy: Code(s): Z98.84 - Bariatric surgery status (2) Obesity (BMI 30-39.9): Code(s): E66.9 - Obesity, unspecified (3) NAFLD (nonalcoholic fatty liver disease): Code(s): K76.0 - Fatty (change of) liver, not elsewhere classified (4) Class 3 obesity: Code(s): E66.01 - Morbid (severe) obesity due to excess calories (5) Morbid obesity: Code(s): E66.01 - Morbid (severe) obesity due to excess calories Plan The patient was reminded to increase to 50-60 oz of water per day. I offered interpretive services to the patient but he declined stating he understood. I also encouraged him to stay on the current meal plan of for scoops of celebrate 4 in 1 divided amongst 3 shakes. He is allowed to have either a scrambled egg or 1 oz of non fruit yogurt. Patient stated candidly that he was confused since his mother was eating pureed food by week 3 after her bariatric procedure. We discussed our program recommendations and he seems to understand the concern about having too many calories and too much food too early. We also discussed the importance of exercise since he stated candidly he is not exercising. The patient stated he is pleased with his result and 55 lbs weight loss. The risk of weight regain with his current practice was discussed and apparently understood. Patient will follow-up with Christine Sharma in the next month and Jose Manuel PA-C for his 3 month postop. Coding Level of Care Code Global (35018) Diagnoses S/P laparoscopic sleeve gastrectomy Z98.84 Obesity (BMI 30-39.9) E66.9 NAFLD (nonalcoholic fatty liver disease) K76.0 Class 3 obesity E66.01 Morbid obesity E66.01
[2023-04-20 15:11] VITALS: BP 150/84; PULSE 75; TEMP 35.6; O2SAT 99; BMI 34.1
== END 2023-04-20 16:09 | disposition home or self-care (01) ==
PROVIDERS: PCP Internal Medicine; Visit Provider Surgery
DX: Z98.84 Bariatric surgery status (principal); E66.9 Obesity, unspecified; K76.0 Fatty (change of) liver, not elsewhere classified; E66.01 Morbid (severe) obesity due to excess calories
CPT/HCPCS: 99024

== ENCOUNTER → 2023-04-20 14:58 | Outpatient (BNVA) | payer OTHER, SELFPAY | PROVIDERS: PCP Internal Medicine; Visit Provider Surgery | DX: E66.01 Morbid (severe) obesity due to excess calories (principal); K76.0 Fatty (change of) liver, not elsewhere classified; Z98.84 Bariatric surgery status; Z68.34 Body mass index [BMI] 34.0-34.9, adult | CPT/HCPCS: 99212 ==

== ENCOUNTER 2023-04-28 13:13 | Outpatient (AMB) | payer OTHER, SELFPAY ==
--- NOTE | 2023-04-28 13:06 | A.OFFVIS_ITS ---
Intake VS Expanded 04/28/23 13:33 Height 5 ft 7 in Weight 215 lb BMI 33.7 Intake Visit Reasons: (TV) PO LSG 03/22/23 Data Base Design Analyst Required: No Allergies No Known Allergies Allergy (Verified 04/20/23 15:11) HPI Nutrition Presentation Details PO LSG 03/22/23 Preop weight 239# last weight 217# current weight at 5 wks PO 215# Reason for consult elevated BMI Diet Assmnt Details Patient reports he has been doing very well at 5 weeks postop. No complaints or questions. Three shakes - 2 scoops in 4in1 in water has been eating soup Exercise: none, reports he is willing to go to the gym Hydration: 24 oz in addition to shakes, feels great Dietary counseling reduction Diagnosis Nutrition problem #1 overweight/obesity As related to (etiology) #1 excess energy intake and physical inactivity As evidenced by (sign/symptom) #1 high BMI Monitoring/Goals Nutrition problem monitoring total energy intake, level of knowledge/skill, total PRO intake, total CHO intake and weight Outcome progress progressing Learning/Education Readiness to learn good Stages of change action Educational materials provided Yes Most Recent Diabetes Results: Cholesterol 165 mg/dL (<200) 03/18/23 HDL Cholesterol 43 mg/dL (>40) 03/18/23 Triglycerides 59 mg/dL (<150) 03/18/23 Creatinine 0.80 mg/dL (0.5-1.4) 03/23/23 Blood Urea Nitrogen 8 mg/dL (9-16) L 03/23/23 Sodium 141 mmol/L (135-145) 03/23/23 Potassium 4.0 mmol/L (3.3-5.1) 03/23/23 Chloride 105 mmol/L (96-108) 03/23/23 Carbon Dioxide 23 mmol/L (22-29) 03/23/23 Calcium 9.0 mg/dL (8.4-10.2) 03/23/23 AST 25 U/L (5-37) 03/18/23 ALT 29 U/L (0-40) 03/18/23 Total Protein 7.9 g/dL (6.5-8.0) 03/18/23 Albumin 4.6 g/dL (3.5-5.0) 03/18/23 PFSH Medical History Former smoker, stopped smoking in distant past Surgical History S/P laparoscopic sleeve gastrectomy Hx of laparoscopic partial gastrectomy Hx of umbilical hernia repair Family History (Reviewed 04/20/23 @ 16:03 by Jairo Low MD, FACS, [facility]) Mother Diabetes Hernia Sleep apnea Father Diabetes Sleep apnea Hypertension Brother No problems noted. Brother No problems noted. Son No problems noted. Daughter No problems noted. Social History (Reviewed 04/20/23 @ 16:03 by Jairo Low MD, FACS, [facility]) Household Members: Children Housing: House Are you a primary child care coordinator to a significant other at home: Yes (2 children, mom will be there post-op to help) Do you presently have visiting nurse or other home services: No Alcohol intake: former Patient Tobacco Use Status: Former Tobacco user Quit Date: 2002 Tobacco use type: Cigarette Assessment & Plan Assessment & Plan (1) Obesity (BMI 30-39.9): Code(s): E66.9 - Obesity, unspecified Plan Nutrition follow-up in 2 weeks Patient Instructions: Two 4in1 shakes - each 2 scoops of powder in water 1 Celebrate Rebuild shake - 2 scoops in water? 1 meal - 2 fork sizes of ONE food option ([place] yogurt OR scrambled egg, OR cottage cheese OR ground turkey OR white fish) Strongly emphasized the importance beginning a consistent exercise routine. Telehealth Telehealth Location of provider rendering services: practice address Location of patient: address on file Patient Identification confirmed using: Name, : Yes Telehealth method: video Patient verbally consented to treatment: Yes Patient verbally consented to billing insurance company: Yes Patient informed of any privacy concerns related to visit: Yes Minutes spent on Phone/Video with Pt.: 20 Coding Level of Care Code Nutr Indiv Subseq (41239) Diagnoses Obesity (BMI 30-39.9) E66.9 Time Spent (min) 20
[2023-04-28 13:33] VITALS: BMI 33.7
== END 2023-04-28 13:35 | disposition home or self-care (01) ==
LOC: HO.HBS 13:13
PROVIDERS: PCP Internal Medicine; Visit Provider Dietitian, Registered
DX: E66.9 Obesity, unspecified (principal)

== ENCOUNTER → 2023-04-28 13:13 | Outpatient (BNVA) | payer OTHER, SELFPAY | PROVIDERS: PCP Internal Medicine; Visit Provider Dietitian, Registered | DX: E66.9 Obesity, unspecified (principal); Z68.33 Body mass index [BMI] 33.0-33.9, adult | CPT/HCPCS: 97803 ==